=== PATIENT | female | born 1985 | race Caucasian/White ===

== ENCOUNTER 2019-01-06 10:16 | Day surgery (SDC) | payer OTHER ==
[~2019-01-06] VITALS: Ht 144.8 cm; Wt 66.5 kg
[2019-01-06] VITALS (9 sets, daily range): BP systolic 108–127; BP diastolic 57–72; PULSE 72–91; RESP 16–21; Ht 144.8 cm; Wt 66.5 kg
--- NOTE | 2019-01-06 11:57 | PREAC ---
Date/Time of Note Date/Time of Note DATE: 01/06/19 TIME: 11:55 Anesthesia Eval and Record Evaluation Time Pre-Procedure Interview DATE: 01/06/19 TIME: 11:55 Age 33 Sex female NPO: 8 hrs Preoperative diagnosis Right Shoulder Mass Planned procedure Excision of Right Shoulder Mass Past Medical History Past Medical History: Includes Heme: Anemia Surgery & Anesthesia Issues No known issue Meds Anticoagulation: No Beta Prudence within 24 hr: No Reason Beta Prudence not given: Pt. not on B-Prudence Meds reviewed: Yes Allergies Allergies Reviewed: Yes Labs/Studies Labs Reviewed: Reviewed by anesthesiologist Result Diagram: 01/06/19 1050 01/06/19 1050 Laboratory Tests 01/06/19 10:50 test: N/A Studies: ECG (n/a), CXR (n/a) Pre-procedure Exam Last vitals Vital Signs Date Temp Pulse Resp B/P (MAP) Pulse Ox O2 O2 Flow FiO2 Time Delivery Rate 01/06/19 98.7 72 18 117/66 100 Room Air 11:03 (83) Airway: Adequate mouth opening, Adequate thyromental dist Mallampati: Mallampati II Teeth: Normal Lung: Normal Heart: Normal ASA Physical Status ASA physical status: 1 Emergency: None Planned Anesthetic General/MAC: LMA Planned Pain Management Parenteral pain med Pre-operative Attestations Prior to commencing anesthesia and surgery, the patient was re-evaluated, there was verification of: *The patient's identity *The results of appropriate recent lab work and preoperative vital signs *The above evaluation not changing prior to induction *Anesthetic plan, risk benefits, alternative and complications discussed with patient/family; questions answered; patient/family understands, accepts and wishes to proceed. JOSE C BUSTAMANTE MD Jan 06, 2019 11:57
[2019-01-06] MEDS ORDERED: OXYCODONE/ACETAMINOPHEN (5/325) TAB PO PRN (12:00)
[2019-01-06] MEDS ORDERED: ONDANSETRON 4 MG INJ IV PRN (12:00)
[2019-01-06] MEDS ORDERED: FENTAnyl 50 MCG/ML VIAL IV PRN ×3 (12:00)
[2019-01-06] MEDS ORDERED: EPHEDrine 25 MG/5 ML SYG IV PRN (12:00)
[2019-01-06] MEDS ORDERED: HYDROmorphONE 1 MG/5 ML IV SYRINGE IV PRN ×3 (12:00)
[2019-01-06] MEDS ORDERED: PROPOFOL 20 ML ONE (12:01)
[2019-01-06] MEDS ORDERED: MIDAZOLAM 1 MG/ML 2 ML INJ ONE (12:01)
[2019-01-06] MEDS ORDERED: CEFAZOLIN 1 GM INJ ONE (12:01)
[2019-01-06] MEDS ORDERED: FENTAnyl 50 MCG/ML VIAL ONE (12:01)
[2019-01-06] MEDS ORDERED: BUPIVACAINE 0.5%/EPI (SDV) 30 ML INJ ONE (12:22)
[2019-01-06] MEDS ORDERED: METOCLOPRAMIDE 10 MG INJ ONE (12:36)
[2019-01-06] MEDS ORDERED: ONDANSETRON 4 MG INJ ONE (12:36)
[2019-01-06] MEDS ORDERED: KETOROLAC 30 MG INJ ONE (12:36)
[2019-01-06] MEDS ORDERED: EPHEDrine 25 MG/5 ML SYG ONE ×2 (12:37)
--- NOTE | 2019-01-06 12:54 | SIPON ---
Date/Time of Note Date/Time of Note DATE: 01/06/19 TIME: 12:53 Operative Report Preoperative Diagnosis Right posterior shoulder mass Postoperative Diagnosis Same Operation/Procedure Performed Resection of right posterior shoulder mass Surgeon see signature line agency sales management assistant Dr Joyce Anesthesia: general Estimated blood loss: 10 - 50 ml's Transfusion Required none Specimen Right posterior shoulder mass Grafts/Implants none Complications none SUNNY MOREJON MD Jan 06, 2019 12:54
--- NOTE | 2019-01-06 13:01 | PAC ---
Date/Time of Note Date/Time of Note DATE: 01/06/19 TIME: 13:01 Post-Anesthesia Notes Post-Anesthesia Note Last documented vital signs Vital Signs Date Temp Pulse Resp B/P (MAP) Pulse Ox O2 O2 Flow FiO2 Time Delivery Rate 01/06/19 98.7 72 18 117/66 100 Room Air 13:03 (83) Activity: WNL Respiratory function: WNL Cardiovascular function: WNL Mental status: Baseline Pain reasonably controlled: Yes Hydration appropriate: Yes Nausea/Vomiting absent: Yes JOSE C BUSTAMANTE MD Jan 06, 2019 13:01
--- NOTE | 2019-01-06 15:13 | OPR ---
DATE OF OPERATION: 01/06/2019 PREOPERATIVE DIAGNOSIS: Right shoulder mass, probable lipoma. POSTOPERATIVE DIAGNOSIS: Right shoulder mass, probable lipoma. OPERATION PERFORMED: Resection of right shoulder mass. ANESTHESIA: General. ANESTHESIOLOGIST: Orlando Hernandez MD SURGEON: Timothy Zimmerman MD SIDING COREBOARD INSPECTOR: Ty Joyce MD INDICATIONS FOR PROCEDURE: The patient is a 33-year-old female presenting with an enlarging mass on the posterior aspect of her right shoulder. She requested surgical resection. She consented and was scheduled for surgery. DESCRIPTION OF PROCEDURE: The patient was brought to the operating theater, placed under general ane sthesia. She was then put in the lateral position with the right side up. The right posterior thora x and shoulder was prepped and draped in usual sterile fashion. Approximately 6 cm incision was made directly over the visually obvious mass. Subcutaneous tissue was dissected with a combination of ca utery and sharp dissection. Deep within the subcutaneous space, a multilobulated, but well circumscr ibed mass was identified. It was dissected with combination of cautery and sharp dissection. The ma ss was then removed and sent for permanent pathologic analysis. The wound was irrigated. Residual b leeding was controlled with cautery. The skin was then reapproximated with a 4-0 Vicryl suture in herrera bcuticular fashion, and benzoin and Steri-Strips were applied. The patient tolerated the procedure w ell. The estimated blood loss was approximately 30 mL. There were no complications and the patient was transported in stable condition to the recovery room. Dictated By: TIMOTHY ZIMMERMAN MD TL/NTS Conf#: [id number] DID#: [id number] CC: TY JOYCE MD;*EndCC*
== END 2019-01-06 14:10 | disposition home or self-care (01) ==
LOC: SDS 10:16
PROVIDERS: ATTEND Surgery Surgical Oncology
DX: D17.21 Benign lipomatous neoplasm of skin and subcutaneous tissue of right arm (principal)
CPT/HCPCS: 23071; 80053; 84703; 85025; 85610; 85730; 88307; J0690; J1885; J2250; J2405; J2765; J3010; Z7512; Z7610